=== PATIENT | female | born 1990 | race Caucasian/White ===

== ENCOUNTER 2017-08-15 16:41 | Emergency (ER) | payer SELFPAY ==
[~2017-08-15] VITALS: Wt 77.3 kg
== END 2017-08-15 20:05 | disposition left against medical advice (07) ==
LOC: FTE 16:41
DX: Z53.21 Procedure and treatment not carried out due to patient leaving prior to being seen by health care provider (principal)

== ENCOUNTER 2018-03-06 13:09 | Outpatient (CLI) | END 2018-03-06 19:33 | disposition home or self-care (01) ==